=== PATIENT | male | born 1970 | race Caucasian/White ===

== ENCOUNTER 2018-02-05 22:49 | Emergency (ER) | payer SELFPAY ==
[~2018-02-05] VITALS: Ht 170.2 cm; Wt 70.3 kg
[2018-02-05 22:55] VITALS: BP 148/88
--- NOTE | 2018-02-05 23:03 | NUR ---
PATIENT PRESENTS TO ED WITH PALPITATIONS. PT STATES NO CHEST PAIN, NO SOB OR DYSPNEA. PT ALSO CONCERNED WITH BLOOD SUGAR BECAUES HIS PCP INFORMED HIM HE IS PRE-DIABETIC. PT'S BLOOD GLUCOSE IS 90 AT THIS TIME. PT DENIES N/V/D; SKIN IS PINK/WARM/DRY; AAOX4 WITH EVEN AND STEADY GAIT; LUNGS CLEAR BL; HR EVEN AND REGULAR; PT DENIES ANY FEVER, CP, SOB, OR COUGH AT THIS TIME; PATIENT STATES PAIN OF 0/10 AT THIS TIME; VSS; PATIENT POSITIONED FOR COMFORT; HOB ELEVATED; BEDRAILS UP X2; BED DOWN. ER MD MADE AWARE OF PT STATUS. CONTINUE TO MONITOR.
--- NOTE | 2018-02-05 23:03 | NUR ---
PT AMBULATED TO BED 9 WITH VSS.
[2018-02-05] MEDS ORDERED: MECLIZINE 25 MG TAB PO ONE (23:30)
[2018-02-05 23:48] LABS: EOSINOPHILS # (AUTO) 0.1 K/uL (0-0.4); HEMOGLOBIN 15.9 g/dL (12.0-18.0)
[2018-02-06 00:01] LABS: BASOPHILS % (AUTO) 0.2 % (0.0-2.0); EOSINOPHILS % (AUTO) 1.4 % (0.0-4.0); HEMATOCRIT 47.5 % (36-52); LYMPHOCYTES % (AUTO) 34.7 % (20.5-51.1); MEAN CORPUSCULAR HEMOGLOBIN 30 pg (27-31); MEAN CORPUSCULAR HGB CONC 34 g/dL (33-37); MEAN CORPUSCULAR VOLUME 88.2 fL (80-94); MONOCYTES # (AUTO) 0.3 K/uL (0.8-1.0); MONOCYTES % (AUTO) 5.7 % (1.7-9.3); NEUTROPHILS # (AUTO) 3.3 K/uL (1.8-7.7); PLATELET COUNT (AUTO) 237 K/uL (140-450); RED BLOOD CELL COUNT(AUTO) 5.38 MIL/uL (4.20-6.10); RED CELL DISTRIBUTION WIDTH 13.5 % (11.6-13.7); WHITE BLOOD COUNT (AUTO) 5.6 K/uL (4.8-10.8)
[2018-02-06 00:03] LABS: ANION GAP 8.8 (8-16); CARBON DIOXIDE 27.8 mmol/L (21-32); CREATININE 1.1 mg/dL (0.7-1.3); POTASSIUM 3.6 mmol/L (3.5-5.1)
[2018-02-06 00:18] LABS: ALBUMIN 3.6 g/dL (3.4-5.0); THYROID STIMULATING HORMONE 3.78 uIU/mL (0.34-3.74); TOTAL BILIRUBIN 0.6 mg/dL (0.0-1.0)
[2018-02-06 01:31] VITALS: BP 148/88
--- NOTE | 2018-02-06 01:31 | NUR ---
Patient discharged with v/s stable. Written and verbal after care instructions given and explained. Patient alert, oriented and verbalized understanding of instructions. Ambulatory with steady gait. All questions addressed prior to discharge. ID band removed. Patient advised to follow up with PMD. Rx of MECLAZINE given. Patient educated on indication of medication including possible reaction and side effects. Opportunity to ask questions provided and answered.
== END 2018-02-06 01:31 | disposition home or self-care (01) ==
LOC: MED 22:49
DX: H83.09 Labyrinthitis, unspecified ear (principal); E78.00 Pure hypercholesterolemia, unspecified
CPT/HCPCS: 36415; 71045; 80053; 84443; 84484; 85025; 93005; 99285; J8597